=== PATIENT | female | born 1995 | race Caucasian/White ===

== ENCOUNTER 2019-11-22 04:59 | Emergency (ER) | payer MEDICAID ==
[~2019-11-22] VITALS: Ht 157.5 cm; Wt 66.6 kg
[~2019-11-22 04:59] MED LIST: ALBU18HF
[2019-11-22] MEDS ORDERED: FAMOTIDINE 20 MG TABLET PO ONE (05:30)
[2019-11-22] MEDS ORDERED: HYDROcodone/APAP 7.5-325MG/15ML UDC PO ONE (05:30)
[2019-11-22] MEDS ORDERED: DIPHENHYDRAMINE 25 MG CAPSULE PO ONE (05:30)
[2019-11-22] MEDS ORDERED: FAMOTIDINE 20 MG TABLET ONE (05:37)
[2019-11-22] MEDS ORDERED: HYDROcodone/APAP 7.5-325MG/15ML UDC ONE (05:38)
[2019-11-22] MEDS ORDERED: DIPHENHYDRAMINE 25 MG CAPSULE ONE (05:38)
[2019-11-22 05:57] LABS: BASOPHILS # (AUTO) 0.03 x10^3/uL (0-0.1); BASOPHILS % (AUTO) 0 % (0-1); EOSINOPHILS # (AUTO) 0.19 x10^3/uL (0-0.4); EOSINOPHILS % (AUTO) 3 % (1-7); LYMPHOCYTES # (AUTO) 1.03 x10^3/uL (1-3.4); LYMPHOCYTES % (AUTO) 16 % (22-44); MD NO; MEAN CORPUSCULAR HEMOGLOBIN 29.9 pg (27.0-34.8); MEAN CORPUSCULAR HGB CONC 33.5 g/dL (32.4-35.8); MEAN CORPUSCULAR VOLUME 89.5 fL (80-100); MEAN PLATELET VOLUME 8.4 fL (7.4-10.4); MONOCYTES % (AUTO) 5 % (2-9); NEUTROPHILS # (AUTO) 4.96 x10^3/uL (1.8-6.8); NEUTROPHILS % (AUTO) 76 % (42-75); PLATELET COUNT 204 x10^3/uL (130-400); RED BLOOD COUNT 5.11 x10^6/uL (3.82-5.3); RED CELL DISTRIBUTION WIDTH 11.9 % (9.6-15.2)
--- NOTE | 2019-11-22 06:18 | NUR ---
PATIENT REPORTS SHE HAS HAD EYE REDNESS, SWELLING AND PROGRESSIVELY GETTING A RASH THROUGH OUT HER BODY SINCE THURSDAY, SHE WAS SENT HOME ON PREDNISONE AND ATARAX. PATIENT REPORTS SHE ONLY TOOK 2 DOSES OF PREDNISONE AND STOPPED BECAUSE SHE FELT LIKE IT WAS MAKING HER FEEL WORSE. PATIENT HAS A RED BLANCHABLE RASH ON HER ELBOWS, KNEES, FEET AND HANDS.
[2019-11-22 06:27] LABS: ALANINE AMINOTRANSFERASE 24 U/L (12-78); ALBUMIN 4.1 g/dL (3.4-5.0); ANION GAP 8 mmol/L (5-15); CALCIUM 9.3 mg/dL (8.5-10.1); CHLORIDE 104 mmol/L (98-107); CREATININE 0.74 mg/dL (0.55-1.02)
[2019-11-22 06:28] LABS: ALKALINE PHOSPHATASE 70 U/L (45-117); BILIRUBIN,TOTAL 0.9 mg/dL (0.2-1.0); TOTAL PROTEIN 8.2 g/dL (6.4-8.2)
--- NOTE | 2019-11-22 06:59 | NUR ---
REPORT RECIEVED FROM KEVIN KAPOOR
--- NOTE | 2019-11-22 08:00 | NUR ---
PT RESTING IN BED, CALL LIGHT IN REACH.
--- NOTE | 2019-11-22 08:42 | NUR ---
POC AND DISCHARGE INSTRUCTIONS REVIEWED.
[2019-11-22 08:52] VITALS: BP 113/68
[2019-11-22] MEDS ORDERED: FENTANYL PF 100 MCG/2ML ONE (09:05)
[2019-11-22] MEDS ORDERED: MIDAZOLAM 1 MG/ML, 5ML ONE (09:05)
== END 2019-11-22 09:24 | disposition home or self-care (01) ==
LOC: ED 06:14
DX: T78.40XA Allergy, unspecified, initial encounter (principal); Z20.828 Contact with and (suspected) exposure to other viral communicable diseases; J03.90 Acute tonsillitis, unspecified; X58.XXXA Exposure to other specified factors, initial encounter; Y93.89 Activity, other specified; Y92.89 Other specified places as the place of occurrence of the external cause; Y99.8 Other external cause status
CPT/HCPCS: 36415; 80053; 85025; 86308; 87081; 87635; 87880; 99284; J7512; Q0163; Q0177; 99283; J2250; J3010

== ENCOUNTER 2019-12-05 21:44 | Emergency (ER) | payer MEDICAID ==
[~2019-12-05] VITALS: Ht 157.5 cm; Wt 67.6 kg
--- NOTE | 2019-12-05 21:57 | NUR ---
PT AMBULATORY TO ROOM, STEADY GAIT.
[2019-12-05 22:47] LABS: BASOPHILS # (AUTO) 0.06 x10^3/uL (0-0.1); BASOPHILS % (AUTO) 1 % (0-1); EOSINOPHILS % (AUTO) 2 % (1-7); LYMPHOCYTES % (AUTO) 35 % (22-44); MD NO; MEAN CORPUSCULAR HEMOGLOBIN 30.1 pg (27.0-34.8); MEAN CORPUSCULAR VOLUME 88.7 fL (80-100); MEAN PLATELET VOLUME 8.1 fL (7.4-10.4); MONOCYTES # (AUTO) 0.38 x10^3/uL (0.2-0.8); MONOCYTES % (AUTO) 5 % (2-9); NEUTROPHILS # (AUTO) 4.16 x10^3/uL (1.8-6.8); NEUTROPHILS % (AUTO) 58 % (42-75); PLATELET COUNT 231 x10^3/uL (130-400); RED BLOOD COUNT 4.47 x10^6/uL (3.82-5.3); RED CELL DISTRIBUTION WIDTH 11.8 % (9.6-15.2)
[2019-12-05 22:57] LABS: ALBUMIN 3.8 g/dL (3.4-5.0); ANION GAP 5 mmol/L (5-15); CALCIUM 8.8 mg/dL (8.5-10.1); CHLORIDE 108 mmol/L (98-107)
[2019-12-05 23:01] LABS: TROPONIN I < 0.015 ng/mL (0.000-0.045)
--- NOTE | 2019-12-05 23:38 | NUR ---
PT HAS REMAINED IN BED CONNECTED TO BP, CARDIAC AND O2 MONITOR. NO SIGNS OF ACUTE DISTRESS, RESPIRATIONS EVEN AND UNLABORED. GIRLFRIEND REMAINS AT BEDSIDE. PT HAS HAD CALL LIGHT WITHIN REACH FOR DURATION OF STAY.
[2019-12-05 23:39] VITALS: BP 115/76
== END 2019-12-06 00:02 | disposition home or self-care (01) ==
LOC: ED 22:22
DX: R07.89 Other chest pain (principal); R09.1 Pleurisy; M54.2 Cervicalgia; M25.511 Pain in right shoulder; R94.31 Abnormal electrocardiogram [ECG] [EKG]
CPT/HCPCS: 36415; 71045; 80048; 82040; 84484; 84703; 85025; 85379; 93005; 99285